=== PATIENT | male | born 1980 | race Caucasian/White ===

== ENCOUNTER 2022-12-23 09:44 | Outpatient (CLI) | payer MEDICARE, SELFPAY ==
[2022-12-23 15:51] LABS: Basophils Percent Auto 0.4 % (0.0-3.0); Eosinophils Percent Auto 1.4 % (0.0-7.0); Hemoglobin* 15.2 gm/dL (13.5-17.5); Immature Granulocytes Pct Auto 0.2 %; Lymphocytes Percent Auto 23.7 % (20-44); Mean Corpuscular HGB Conc 33 gm/dL (32-36); Mean Corpuscular Hemoglobin 31 pg (26-34); Mean Corpuscular Volume 95 fL (80-100); Monocytes Percent Auto 5.2 % (0.0-11.0); Neutrophils Percent Auto 69.1 % (42.0-72.0); Platelet Count* 362 K/uL (140-440); RDW Coefficient of Variation % 14.1 % (11.5-15.5); Red Blood Count 4.86 m/uL (4.30-5.90); White Blood Count* 13.98 K/uL (4.50-11.00)
[2022-12-23 15:59] LABS: Slide Review Reflex No
[2022-12-23 17:25] LABS: Strep A DNA Probe* NOT DETECTED (Not Detectd)
[2022-12-23 17:26] LABS: SARS PCR* Negative SARS-CoV-2 (Negative)
== END 2022-12-23 09:45 | disposition home or self-care (01) ==
PROVIDERS: Visit Provider Nurse Practitioner Family
DX: J11.1 Influenza due to unidentified influenza virus with other respiratory manifestations (principal)
CPT/HCPCS: 85025; 87635; 87651

== ENCOUNTER 2024-08-12 08:25 | Outpatient (CLI) | payer MEDICARE, SELFPAY | END 2024-08-12 08:26 | disposition home or self-care (01) | PROVIDERS: PCP Nurse Practitioner Family; Visit Provider Nurse Practitioner Family | DX: Z13.228 Encounter for screening for other metabolic disorders (principal); Z13.0 Encounter for screening for diseases of the blood and blood-forming organs and certain disorders involving the immune mechanism | CPT/HCPCS: 80053; 85025 ==

== ENCOUNTER 2024-10-09 07:27 | Emergency (ER) | payer MEDICARE, SELFPAY ==
[2024-10-09 07:37] VITALS: BP 119/82; PULSE 105; RESP 18; TEMP 36.7; O2SAT 97; BMI 29.6
--- NOTE | 2024-10-09 08:08 | ED.GENADULT ---
HPI - General Adult General Date Seen: 10/09/24 Chief complaint: Back Injury/Pain Stated complaint: Back Pain Time Seen by Provider: 10/09/24 08:01 History of Present Illness HPI narrative: 44 yo M brought to ER this morning by EMS for back pain. Per report he has a history of chronic back pain and many surgeries 3 [facility]. He has been for having flaring back pain for the past 3 days. He was brought in by EMS this morning. He received fentanyl 100 mcg per EMS. He does not have many past medical records here in [facility] but does have records through [facility]. Past medical history noted through [facility] care link includes chronic back pain, L1 vertebral fracture, cervical stenosis, cervical spondylosis with radiculopathy, lumbar back pain, lumbar fusion,. Also history of anxiety/depression, controlled substance agreement broken (records indicate that he had a drug test positive for amphetamine and THC in 2016). Records indicate that he was on chronic opiates. He received a prescription for Dilaudid 4 mg tablets through his PCP in July 2024. He was hospitalized in August 2024 and 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 It looks a who is admitted 09/02/2024 at [facility]. According to those records he had altered mental status. He had had a recent lumbar fusion and had been off his amitriptyline for a few weeks and then restarted it 2 days prior to presentation. Patient confirms that he does have chronic neck and back pain. He has had multiple previous surgeries. On August 15 he had a cervical fusion and on August 16, the following day he had a lumbar thoracic fusion. He says he is fused from S1-T4 now. He says for about a month or so after his surgery his surgeons had increased his chronic opiate. He had been on Dilaudid 4-6 mg q.6 hours. As is their practice, it after about a month, the spine surgeons would no longer manage his pain in referred him back to the Pain Clinic. His pain clinic decreased him down to oxycodone 10 mg every few hours. He says he is allowed to take up to 8 oxycodone tablets per day. He is also on tizanidine for muscle relaxer, gabapentin 900 mg t.i.d. for pain. He had been having some trouble getting his skin incisions from his recent surgeries to heal but they now are all have been closed for the past couple of weeks. No recent bleeding or drainage from the incisions. He does have some chronic back pain and also some chronic pain radiated down his left leg. He notes that Monday night he had a significant flare in his low back pain. No clear trigger. No new injury. No unusual activity. The pain has been severe and continuous since then and not responding to his oxycodone. In addition to that he has worse numbness down his left leg with pain and numbness radiating all way down to his foot and new numbness radiating down his right leg. He thinks his bladder and bowel function has been normal. No fevers. He had a follow-up appointment scheduled with his surgeon through [facility], Dr. Crespo. The appointment was supposed to be yesterday. He could not go to the appointment because he was having too much pain. He called the ambulance this morning because he said, ?I just can not do it anymore!. He asked to be brought here to [place] thinking that there were spine surgeons here. Related Data Home Medications ?Medication ?Instructions ?Recorded ?Confirmed gabapentin 300 mg capsule 300 mg PO TID 12/23/22 10/09/24 tizanidine 4 mg tablet 4 mg PO Q8H PRN 12/23/22 08/12/24 amitriptyline 50 mg tablet 50 mg PO QPM 08/12/24 10/09/24 ondansetron 4 mg disintegrating 4 mg PO Q8H PRN 08/12/24 10/09/24 tablet oxycodone 20 mg tablet 10 mg PO Q8H PRN 08/12/24 08/12/24 oxycodone 5 mg tablet 5 mg PO PRN 08/12/24 08/12/24 hydroxyzine pamoate 25 mg capsule 25 mg PO Q6H PRN itch 10/09/24 10/09/24 oxycodone 10 mg tablet 10 mg PO 10/09/24 Previous Rx's ?Medication ?Instructions ?Recorded hydromorphone 4 mg tablet 4 mg PO Q6H PRN pain #10 tabs 10/09/24 (Dilaudid) Allergies Allergy/AdvReac Type Severity Reaction Status Date / Time morphine Allergy Vomiting Verified 08/12/24 08:06 [facility] Surgical History (Updated 08/12/24 @ 08:18 by Sherri Paul APRN, ENGINE HEAD REPAIRER) History of hand surgery ?Z98.890 - Other specified postprocedural states (ICD-10) History of spinal surgery ?Z98.890 - Other specified postprocedural states (ICD-10) Family History (Updated 08/12/24 @ 08:18 by Sherri Paul APRN, ENGINE HEAD REPAIRER) Mother ALS (amyotrophic lateral sclerosis) Social History (Updated 08/12/24 @ 08:20 by Sherri Paul APRN, ENGINE HEAD REPAIRER) Narrative: Single, fianc?e, 2 step daughters. Disabled. Former smoker, quit 2018. Alcohol, none. No illicit drug use. Walks daily. Smoking Status: Former smoker How often do you have a drink containing alcohol: never AUDIT-C Alcohol total score: 0 Non-prescribed substance use: marijuana (any form) Exam Narrative: Exam Narrative: Constitutional: Appears well-developed and well-nourished. Alert. Moaning due to pain. At times is somewhat disjointed and almost hysterical in providing his history. At other times he is fairly calm and I am able to get a reasonably cogent history. HENT: Head: Atraumatic. Nose: Nose normal. Mouth/Throat: Oral mucosa is clear and moist. no trismus. Eyes: Conjunctivae normal. EOM normal. Pupils equal, round, and reactive to light. No scleral icterus. Neck: Normal range of motion. Neck supple. No tracheal deviation present. Cardiovascular: Normal rate, regular rhythm. No gallop. No friction rub. No murmur heard. Symmetric radial artery pulses Pulmonary/Chest: Effort normal. No stridor. No respiratory distress. No wheezes. No rales. No rhonchi . No tenderness. Abdominal: Soft. Bowel sounds normal. No distension. No mass. No tenderness. No rebound. No guarding. Musculoskeletal: He is able to roll onto his left hip so I can examine his back. He has healing incisions on the spine including a right lumbar para midline incision that looks good. He also has a long midline incision that looks good. There is a little bit of scabbing on his long midline incision but there is no signs of any active drainage, purulent drainage, bleeding. No surrounding erythema. No palpable fluctuance. He is diffusely tender on his entire thoracic and lumbar spine without any point tenderness or step-off. RUE: Normal range of motion. No tenderness. No deformity LUE: Normal range of motion. No tenderness. No deformity RLE: Normal range of motion. No edema. No tenderness. No deformity LLE: Normal range of motion. No edema. No tenderness. No deformity Neurological: Alert and oriented to person, place, and time. Normal strength. CN II-VII intact. No sensory deficit. GCS eye subscore is 4. GCS verbal subscore is 5. GCS motor subscore is 6. Normal coordination Neuro exam is difficult because the patient has superimposed pain. Sensory: Normal light touch sensation bilaterally on the anteromedial thigh (L3), medial malleolus (L4), dorsal first web space (L5), lateral malleolus (S1). Strength: Strength hip flexors (L3) is limited by pain bilaterally but seems to be 5/5 on the right and left 5/5 strength in the quadriceps (L4) on the right and left 5/5 strength in the tibialis anterior 5/5 strength in the EHL (L5) on the right and left 5/5 strength in the gastrocnemius (S1) on the right and left Strength is limited by pain in the hamstring on the right and left but seems to be 5/5 DTRs: Not able to get good DTRs. Positive straight leg raise bilaterally. Skin: Skin is warm and dry. No rash noted. No pallor. Normal capillary refill. Psychiatric: Normal mood. Normal affect. Const: Vital Signs, click to edit/add: Vital Signs - 24 hr 10/09/24 07:37 10/09/24 09:37 10/09/24 09:38 Temperature 98.1 F Pulse Rate 95 86 Pulse Rate [Pulse Oximeter] 105 H Respiratory Rate 18 Blood Pressure 115/77 Blood Pressure [Ri ght Upper Arm] 119/82 Pulse Oximetry 97 99 97 Oxygen Delivery Me thod Room Air 10/09/24 10:21 10/09/24 11:26 Temperature Pulse Rate 81 Pulse Rate [Pulse Oximeter] Respiratory Rate Blood Pressure 103/74 Blood Pressure [Ri ght Upper Arm] Pulse Oximetry 96 Oxygen Delivery Me thod Course Course ED Course: Recheck-still having some pain. Also very anxious. Ativan and additional oral Dilaudid order to facilitate MRI. Reevaluation(s) Reevaluation #1: Recheck-after MRI patient looks more comfortable but still endorsing a lot of pain. He is requesting some IV pain medications in hopes that the work better than pills. I discussed that it is best to avoid IVs due to potential worsening in his overall pain long-term. He verbalizes understanding. We talked about potentially discharging with a short prescription for Dilaudid tablets that he can use instead of oxycodone. He voluntarily informs me that he has a pain contract with [facility] and that I should call them 1st before giving new prescriptions. His provider's name is Kanwal. Phone call placed to [facility] Vital Signs Vital signs: Initial Vital Signs Temperature 98.1 F 10/09/24 07:37 Temperature Source Temporal Artery Scan 10/09/24 07:37 Pulse Rate 105 H 10/09/24 07:37 Respiratory Rate 18 10/09/24 07:37 Blood Pressure 119/82 10/09/24 07:37 Blood Pressure Mean 94 10/09/24 07:37 Pulse Oximetry 97 10/09/24 07:37 Oxygen Delivery Method Room Air 10/09/24 07:37 Vital Signs Temperature 98.1 F 10/09/24 07:37 Pulse Rate 105 H 10/09/24 07:37 Respiratory Rate 18 10/09/24 07:37 Blood Pressure 119/82 10/09/24 07:37 Pulse Oximetry 97 10/09/24 07:37 Oxygen Delivery Method Room Air 10/09/24 07:37 Temperature 98.1 F 10/09/24 07:37 Pulse Rate 81 10/09/24 10:21 Respiratory Rate 18 10/09/24 07:37 Blood Pressure 103/74 10/09/24 11:26 Pulse Oximetry 96 10/09/24 10:21 Oxygen Delivery Method Room Air 10/09/24 07:37 Medications Administered Medications: Discontinued Medications Generic Name Dose Route Start Last Admin Trade Name Lorrie PRN Reason Stop Dose Admin Hydromorphone HCl 4 mg 10/09/24 08:43 10/09/24 08:58 Hydromorphone 2 Mg Tablet PO 10/09/24 08:44 4 mg ONCE ONE Administration Hydromorphone HCl 2 mg 10/09/24 10:15 10/09/24 10:19 Hydromorphone 2 Mg Tablet PO 10/09/24 10:16 2 mg ONCE ONE Administration Lorazepam 1 mg 10/09/24 08:43 10/09/24 09:49 Lorazepam 1 Mg Tablet PO 10/09/24 08:44 1 mg ONCE ONE Administration Medical Decision Making MDM Narrative Medical decision making narrative: 44-year-old gentleman with a history of multiple previous spine and neck surgeries and chronic low back pain on opiates presenting to the ER today this morning from his home by EMS with an exacerbation of his low back pain and new symptoms of pain and numbness radiating down both of his legs. He had had surgery on his C-spine as well as his teen L-spine in July by Dr. Crespo ([facility]) at [facility]. He has no recent fall or injury or no clear reason why his pain would flare up for the past few days. He has not had any fever. However with new worsening pain and bilateral leg symptoms we I did feel that [facility] imaging was indicated. Fortunately, we were able to get MRI of his lumbar spine with and without contrast. I do not think he needs MRI of the T or C-spine because the pain is isolated to his low back and both legs. Of the MRI of the L-spine does not show any catastrophic findings such as epidural hematoma, abscess, new fracture. It does show postsurgical changes as well as a synovial cyst with some impingement into the right L5-S1 canal and nerve root. It is possible that this synovial cyst could be causing some of his exacerbation of pain. Does not represent an immediate neurosurgical emergency. The patient actually had a previously scheduled postop appointment with his spine surgeon yesterday but missed it. Will provide him with digital copies of his MRI today and recommend close outpatient follow-up with his surgeon to re-evaluate his pain and this synovial cyst. D[facility] She knows this case well. She is okay with us giving him a short prescription for Dilaudid to manage his pain for the next couple of days. She asks to have him call tomorrow to check in with her clinic. Also she recommends close outpatient follow-up with his surgeons discussed this plan of care with the patient. He is willing to try the Dilaudid at home. He is not sure if his insurance will cover it. If they do not he is willing to pay doll. He is also worried that the pharmacy may not fill his prescription since he just filled a prescription for oxycodone a few days ago. He is willing to try getting it filled through the [facility] pharmacy in [place]. Discussed the need to follow up by phone tomorrow with his pain clinic . He will call his surgeon's today to reschedule his postop appointment. He understands that he does have a synovial cyst and that needs to be evaluated by surgeon. We also discussed chronic pain. We are giving him a prescription for Dilaudid today. We cannot give further refill prescriptions for pain further struck the ER for this problem Opiate precautions reviewed. Potential for addiction reviewed. Imaging Data MRI L spine: Radiologist's impression: Impression: 1. Extensive postoperative changes of the lumbar spine with posterior instrumented fusion identified from the T11 through S1 levels as well as interbody fusion from the L1-L2 through L4-L5 levels. 2. Demonstration of likely prior hardware removal of left L5 pedicle screw with severe postoperative and degenerative facet arthrosis of the right L5-S1 facet with demonstration of a large medially directed synovial cyst measuring 6.2 millimeters with marked effacement of the right lateral recess and exiting nerve root. There is minimal circumferential epidural granulation tissue at this level and likely a small residual postoperative seroma adjacent to the posterior L4 and L5 posterior elements. Correlate for history of recent surgery weeks prior. Discharge Plan Discharge Clinical Impression: Acute exacerbation of chronic low back pain Patient Disposition: Home, Self-Care Condition: Stable Instructions: Acute Low Back Pain (ED) Additional Instructions: Please follow-up with your surgeon, Dr. Crespo, as soon as possible. Also follow-up with your pain clinic at [facility] within 1-2 days. If you have new symptoms (for instance new weakness in your leg, bowel or bladder disturbance, high fever) or other concerns, please return to the ER or see your doctors right away. Prescriptions: New hydromorphone [Dilaudid] 4 mg tablet 4 mg PO Q6H PRN (Reason: pain) Qty: 10 0RF No Action gabapentin 300 mg capsule 300 mg PO TID tizanidine 4 mg tablet 4 mg PO Q8H PRN oxycodone 20 mg tablet 10 mg PO Q8H PRN oxycodone 5 mg tablet 5 mg PO PRN amitriptyline 50 mg tablet 50 mg PO QPM ondansetron 4 mg tablet,disintegrating 4 mg PO Q8H PRN hydroxyzine pamoate 25 mg capsule 25 mg PO Q6H PRN (Reason: itch) oxycodone 10 mg tablet 10 mg PO Follow Up/Referrals: Sherri Paul APRN, ENGINE HEAD REPAIRER [Primary Care Provider] - Stand Alone Forms: [facility] Info Instructions
--- OUTSIDE RECORDS SUMMARY | 2024-10-09 08:57 | XMS_ITS | Clinical Summary ---
Author Organization [facility] Address [address] [place] [address]. [place] [address] Care Team Providers Care Supervisor Electrolytic Tinning Name Role Phone Levon, Callum GARCIA Primary Care Provider [phone] Allergies Active Allergy Reactions Criticality Noted Date Comments Morphine 10/14/2007 Medications TYLENOL 325 MG OR TABS Take 650 mg by mouth every 4 hours as needed Active cyclobenzaprine (FLEXERIL) 10 MG tablet 10 mg 3 times daily 0 6 Active gabapentin (NEURONTIN) 300 MG capsule 900 mg 4 times daily 0 7 Active oxyCODONE (ROXICODONE) 5 MG tablet Take 20 mg by mouth every 6 hours as needed for severe pain Active naloxone (NARCAN) 4 MG/0.1ML nasal spray [place] 1 spray (4 mg) into one nostril alternating nostrils as needed for opioid reversal every 2-3 minutes until assistance arrives 0.2 mL 0 Active Encounters Date Type Department Care Team Description 09/03/2024 Telephone [facility] [address] [place] [address] Mica Villela RN Pt. Information/instruction from Last 3 Months Immunizations Name Administration Dates Next Due TDAP Vaccine (Boostrix) 06/17/2015 Social History Tobacco Use Types Packs/Day Years Used Date Smoking Tobacco: Every Day Cigarettes Smokeless Tobacco: Never Tobacco Cessation:Ready to Q uit: No; Counseling Given: Yes Alcohol Use Standard Drinks/Week Comments Never 0 (1 standard drink = 0.6 oz pur e alcohol) AUDIT-C Answer Date Recorded Q1: How often do you have a drink containing alc ohol? 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 Gender Identity Not on file Sexual Orientation Not on file Last Filed Vital Signs Vital Sign Reading Time Taken Comments Blood Pressure 107/87 11/28/2019 8:00 PM CDT Pulse 108 11/28/2019 8:00 PM CDT Temperature 37.1 C (98.7 F) 11/28/2019 6:31 PM CDT Respiratory Rate 30 11/28/2019 8:00 PM CDT Oxygen Saturation 94% 11/28/2019 8:00 PM CDT Inhaled Oxygen Concentration - - Weight 80.3 kg (177 lb) 01/30/2017 2:46 PM CDT Height 172.7 cm (5' 8) 01/30/2017 2:46 PM CDT Body Mass Index 26.91 01/30/2017 2:46 PM CDT Plan of Treatment Not on file Care Teams Supervisor Electrolytic Tinning Relationship Specialty Start Date End Date Clinic, MD Callum [address] [place] [address] PCP - General 11/28/19
--- OUTSIDE RECORDS SUMMARY | 2024-10-09 08:57 | XMS_ITS | Encounter Summary ---
Author Organization [place] Address [facility] [place] [address] Care Team Providers Care Grain Grader Name Role Phone Levon, Callum GARCIA Primary Care Provider [phone] Reason for Visit * Reason Onset Date Comments Pt. Information/instruction 09/03/2024 Encounter Details Date Type Department Care Team (Late st Contact Info) Description 09/03/[address] [facility] Nurse [facility] [address] [place] [address] Mica Villela, RN Pt. 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 He had neck and back surgery about 2 weeks ago and he is back in the hospital. Advised pt to call tomorrow during business hours to cancel his appt. He verbalized understanding. Mica Villela RN, BSN Nurse Triage Advisor 09/03/2024 6:53 PM EN PRINTING LOADER UNLOADER documented in this encounter Plan of Treatment Not on file documented as of this encounter Visit Diagnoses Not on filedocumented in this encounter Care Teams Grain Grader Relationship Specialty Start Date End Date Clinic, MD Callum [facility] [address] [place], [place] [id number] PCP - General 11/28/19 documented as of this encounter
--- OUTSIDE RECORDS SUMMARY | 2024-10-09 08:57 | XMS_ITS | Clinical Summary ---
Author Organization [facility] Address [place], [place] [address] Care Team Providers Care Credit Control Manager Name Role Phone Clinic, No Pcp Or Primary Care Provider Unavaila ble Allergies Active Allergy Reactions Criticality Noted Date Comments Morphine Itching,Vomiting 06/27/2011 Vancomycin Itching 08/15/2019 Medications acetaminophen (TYLENOL EXTRA STRGTH) 500 mg tabletIndications: pain Take 1,000 mg by mouth every 6 hours if needed. Max acetaminophen dose: 4000mg in 24 hrs. Active ondansetron (ZOFRAN ODT) 4 mg disintegrating tabletIndications: Nausea and vomiting, unspecified vomiting type Place 1 Tablet (4 mg) on the tongue every 8 hours if needed for Nausea/Vomiting. 30 Tablet 01/04/20 Active WalkerIndications: Lumbar stenosis with neurogenic claudication Walker with front wheels for home use for 3 months. 1 Each 08/19/20 Active hydrOXYzine pamoate (VISTARIL) 25 mg capsuleIndications :Lumbar stenosis with neurogenic claudication,Acute postoperative pain Take 1-2 Capsules (25-50 mg) by mouth 3 times daily if needed for Anxiety (Pain adjunct). Short term use for acute postoperative pain. 20 Capsule 4 11:06 AM PATIENT COORDINATOR 08/20/20 Active HYDROmorphone 4 mg tabletIndications: Acute postoperative pain,Cervical spondylosis with radiculopathy Take 1-1.5 Tablets (4-6 mg) by mouth every 4 hours if needed for Pain. As pain improves take less medication and go longer between doses. Short term use for acute postoperative pain. Do not take more than prescribed. 45 Tablet 4 1:35 PM PATIENT COORDINATOR 08/20/20 Active tiZANidine (ZANAFLEX) 4 mg tabletIndications: Acute postoperative pain,Cervical spondylosis with radiculopathy Take 1 Tablet (4 mg) by mouth every 8 hours if needed for Muscle Spasm. For short term use for acute postoperative pain. As spasms improves take less medication and go longer between doses. 30 Tablet 4 1:35 PM PATIENT COORDINATOR 08/20/20 Active polyethylene glycoL (MIRALAX) 17 gram/scoop powderIndications: Opioid-induced constipation Mix 1 scoop (17 g) in liquid then take by mouth once daily. And up to twice daily if needed to prevent opioid-induced constipation. Hold if having diarrhea. 1020 g 08/21/20 Active sennosides-docusat e (SENOKOT S) (8.6-50 mg) tabletIndications: Opioid-induced constipation Take 2 Tablets by mouth two times daily. To prevent constipation while on opioid. Hold if having diarrhea or loose stools. 120 Tablet 08/21/20 Active gabapentin (NEURONTIN) 300 mg capsuleIndications :Lumbar disc disease,Cervical spinal stenosis Take 1 Capsule (300 mg) by mouth three times daily. 09/04/19 25 Active sennosides (SENNA) 8.6 mg tabletIndications: Constipation, unspecified constipation type Take 1-2 Tablets (8.6-17.2 mg) by mouth 2 times daily if needed for Constipation. 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 Certified letter sent to patient. Vomiting 02/21/2017 AC joint arthropathy 06/12/2014 Chronic back pain 03/29/2013 S/P lumbar fusion 03/29/2013 Overview (03/29/2013): 1998 Encounters Date Type Department Care Team Description 09/02/2024 6:31 PM PATIENT COORDINATOR - 09/04/2024 1:09 PM PATIENT COORDINATOR Hospital Encounter [address] [address] Rosemarie Sharpe PA Ran, Renzhong, MD Ellingson, MD Estrella Paerkh Clive Peter Omwanza, MD Cudak, Austin Christopher, DO Kim, Jae-Woo, MD Altered mental status, unspecified altered mental status type (Primary Dx); Poisoning by parasympatholytic drug, accidental or unintentional, initial encounter; Other problems related to housing and economic circumstances; Transportation insecurity; Low income; Lumbar disc disease; Cervical spinal stenosis; Constipation, unspecified constipation type Discharge Disposition: Home Self Care 09/02/2024 Travel 08/16/2024 7:55 AM PATIENT COORDINATOR Anesthesia Event [facility] [address] [place] [id number] Janusz Brown CRNA 08/16/2024 7:00 AM PATIENT COORDINATOR - 08/16/2024 2:26 PM PATIENT COORDINATOR Surgery [facility] [address] [place] [address] Jorge Crespo MD Anterior Spine interbody Fusion T9 to: T11, Posterior Spine Fusion T4-T11, Bone marrow aspiration Right ILEUM, REMOVAL RIGHT S1 SCREW 08/15/2024 7:49 AM PATIENT COORDINATOR Anesthesia Event [facility] [address] [place] [address] Oziel Morales MD 08/15/2024 7:30 AM PATIENT COORDINATOR - 08/15/2024 12:39 PM PATIENT COORDINATOR Surgery [facility] [address] [place] [address], [place] [address] Milton Helm MD Anterior Cervical Decompression Fusion C3 to: C6 08/15/2024 5:51 AM PATIENT COORDINATOR - 08/21/2024 11:05 AM PATIENT COORDINATOR Hospital Encounter [facility] [address] [place] [address] Milton Helm MD Chronic, continuous use of opioids (Primary Dx); Lumbar stenosis with neurogenic claudication; Acute postoperative pain; Cervical spondylosis with radiculopathy; Opioid-induced constipation Discharge Disposition: Home Self Care 08/14/2024 Travel from Last 3 Months Immunizations Name Administration Dates Next Due Hepatitis B, Unspecified 10/21/1996,03/05/1996,0 01/30/1996 Tdap 06/17/2015 Family History Relation Name Status Comments Daughter Alive Father Alive Mother Social History Tobacco Use Types Packs/Day Years Used Date Smoking Tobacco: Former Cigarettes 1.5 22 0 01/27/1996 - 01/2018 Smokeless Tobacco: Never Comments:around 5 cigerettes per day Alcohol Use Standard Drinks/Week Comments No 0 (1 standard drink = 0.6 oz pur e alcohol) PHQ-2 Answer Date Recorded PHQ-2 Score 4 10/29/2018 Social Connections Answer Date Recorded Do you often feel lonely or isolated from those around you? 0 09/03/2024 Financial Resource Strain Answer Date R ecorded Difficulty of Paying Living Expenses 1 09/03/2024 Difficulty of Paying Living Expenses 2 09/03/2024 Food Insecurity Answer Date Recorded Do you worry your food will run out before you are able to buy more? 1 09/03/2024 Transportation Needs Answer Date Record ed Does lack of transportation keep you from medica l appointments? 1 09/03/2024 Does lack of transportation keep you from work, meetings or getting things that you need? 2 09/03/2024 Housing Stability Answer Date Recorded What is your housing situation today? 1 09/03/2024 Interpersonal Safety Answer Date Record ed Are you being hit, kicked, p ushed or yelled at (see row info)? No 09/02/2024 Interpersonal Safety Abuse 12 - 18 Not on file 09/02/2024 Interpersonal Safety Ambulatory Vulnerability No t on file 09/02/2024 Utilities Answer Date Recorded Do you have trouble paying f or utilities (for example, heat, electricity, water, phone)? 2 09/03/2024 Sex and Gender Information Value Date Recorded Sex Assigned at Not on file Legal Sex Male 6:07 AM PATIENT COORDINATOR Gender Identity Not on file Sexual Orientation Not on file Obstetrics History Last Filed Vital Signs Vital Sign Reading Time Taken Comments Blood Pressure 109/64 09/04/2024 8:06 AM PATIENT COORDINATOR Pulse 92 09/04/2024 8:06 AM PATIENT COORDINATOR Temperature 36.2 C (97.1 F) 09/04/2024 8:06 AM PATIENT COORDINATOR Respiratory Rate 18 09/04/2024 8:06 AM PATIENT COORDINATOR Oxygen Saturation 96% 09/04/2024 8:06 AM PATIENT COORDINATOR Inhaled Oxygen Concentration - - Weight 90.6 kg (199 lb 12.8 oz) 09/02/2024 6:47 PM PATIENT COORDINATOR Height 172.7 cm (5' 8) 09/02/2024 6:47 PM PATIENT COORDINATOR Body Mass Index 30.38 09/02/2024 6:47 PM PATIENT COORDINATOR Plan of Treatment Health Maintenance Due Date Last Done Comments HIV for age 15-65 1994 Hepatitis C screening for age 18-79 1997 BMI (ht and wt on same day) for age 18+ 07/03/2018 07/03/2017, 02/21/2017, 02/20/2017, Additional history exists Depression screening for age 12+ 07/09/2019 07/09/2018, 10/17/2016, 10/05/2015 COVID-19 vaccine series ( season) 2024 Influenza for age 9-49 04/28/2024 Colonoscopy through age 75 2024 Lipids for age 45-75 2024 Tetanus booster 06/17/2025 06/17/2015 Tdap Completed 06/17/2015 Pneumococcal series for age 6-49 Aged Out No longer eligible based on patient's age to complete this topic Medical Devices Implanted Type Area Shovel Log Loader Operator Device Identifier Shelf Expiration Date Model / Serial / Lot K-Wire Dbl End [id number] - [id number] Implanted:Qty: 2 on 06/19/2015 by Deniz Melgar MD at [facility] Left: Hand [employer] [id number]# / / Bone Matrix 2.5x10cm Stephan Plf m - [id number] Implanted:Qty: 1 on 01/31/2018 by Jorge Crespo MD at [facility] N/A: Spine Medtronic Spine/Ortho 03/29/2020 [id number]# / [id number] / [id number] Bone 1-4mm 90cc Medtronic Chips Canclls Freeze Dried - [id number] Implanted:Qty: 1 on 01/31/2018 by Jorge Crespo MD at [facility] N/A: Spine Medtronic Spine/Ortho 08/27/2022 [id number]# / [id number] / [id number] Spacer Lmbr [id number] 10deg Transcontinental - [id number] Implanted:Qty: 1 on 01/31/2018 by Jorge Crespo MD at [facility] N/A: Spine Globus [employer] Inc 375.273# / / Spacer Lmbr [id number] 10deg Transcontinental - [id number] Implanted:Qty: 1 on 01/31/2018 by Jorge Crespo MD at [facility] N/A: Spine [employer] 375.271# / / Spacer Lmbr [id number] 10degtranscontinen kanwal - [id number] Implanted:Qty: 1 on 01/31/2018 by Jorge Crespo MD at [facility] N/A: Spine [employer] 375.073# / / Bone 1-4mm 90cc Medtronic Chips Canclls Freeze Dried - [id number] Implanted:Qty: 1 on 01/31/2018 by Jorge Crespo MD at [facility] Bilateral: Lumbar Vertebrae Medtronic Spine/Ortho 08/27/2022 [id number]# / / [id number] Bone 1-4mm 90cc Medtronic Chips Canclls Freeze Dried - [id number] Implanted:Qty: 1 on 01/31/2018 by Jorge Crespo MD at [facility] Bilateral: Lumbar Vertebrae Medtronic Spine/Ortho [id number]# / / [id number] Screw Lmbr Post 8.5x35mm Solera 5.5/6 Va Cocr - [id number] Implanted:Qty: 2 on 01/31/2018 by Jorge Crespo MD at [facility] Explanted:Qty: 1 on 09/12/2018 by Jorge Crespo MD at [facility] Lumbar Vertebrae Medtronic Spine/Ortho [id number]# / / Screw Lmbr Post 7.5x45mm Solera 5.5/6 Va Cocr - [id number] Implanted:Qty: 8 on 01/31/2018 by Jorge Crespo MD at [facility] Explanted:Qty: 3 on 09/12/2018 at [facility] Lumbar Vertebrae Medtronic Spine/Ortho [id number]# / / Bone Matrix 2.5x5cm Karnes Plf Dbm - [id number] Implanted:Qty: 1 on 09/12/2018 by Jorge Crespo MD at [facility] Bilateral: Lumbar Vertebrae Medtronic Spine/Ortho 01/09/2021 [id number]# / / [id number] Bone Matrix Sm Infuse Bmp - [id number] Implanted:Qty: 1 on 09/12/2018 by Jorge Crespo MD at [facility] Bilateral: Lumbar Vertebrae Medtronic Spine/Ortho 11/25/2020 [id number]# / / [id number] Bone 1-4mm 90cc Medtronic Chips Canclls Freeze Dried - [id number] Implanted:Qty: 1 on 09/12/2018 by Jorge Crespo MD at [facility] Bilateral: Lumbar Vertebrae Medtronic Spine/Ortho 02/15/2023 [id number]# / / [id number] Screw Lmbr Post 6.5x50mm Solera 5.5/6 Va Cocr - [id number] Implanted:Qty: 3 on 09/12/2018 by Jorge Crespo MD at [facility] Bilateral: Lumbar Vertebrae Medtronic Spine/Ortho [id number]# / / Screw Lmbr Post 6.5x45mm Solera 5.5/6 Va Cocr - [id number] Implanted:Qty: 1 on 09/12/2018 by Jorge Crespo MD at [facility] Bilateral: Lumbar Vertebrae Medtronic Spine/Ortho [id number]# / / Screw Lmbr Post 8.5x45mm Solera 5.5/6 Va Cocr - [id number] Implanted:Qty: 1 on 09/12/2018 by Jorge Crespo MD at [facility] Bilateral: Lumbar Vertebrae Medtronic Spine/Ortho [id number]# / / Bone 1-4mm 90cc Medtronic Chips Canclls Freeze Dried - [id number] Implanted:Qty: 1 on 09/12/2018 by Jorge Crespo MD at [facility] Bilateral: Lumbar Vertebrae Medtronic Spine/Ortho 02/15/2023 [id number]# / / [id number] Sebastián Lmbr 500x5.5mm Solera 5.5/6 Stra Titnm Alloy - [id number] Implanted:Qty: 1 on 09/12/2018 by Jorge Crespo MD at [facility] Bilateral: Lumbar Vertebrae Medtronic Spine/Ortho [id number]# / / Set Screw Lmbr Ant 5.5mm Solera Break Off - [id number] Implanted:Qty: 12 on 09/12/2018 by Jorge Crespo MD at [facility] Bilateral: Lumbar Vertebrae Medtronic Spine/Ortho [id number]# / / Screw Lmbr Post 9.5x35mm Solera 5.5/6 Va Cocr - [id number] Implanted:Qty: 1 on 09/12/2018 by Jorge Crespo MD at [facility] Lumbar Vertebrae Medtronic Spine/Ortho [id number]# / / Bone Matrix 3cc Karnes Dbf Putty Dbm - [id number] Implanted:Qty: 1 on 08/15/2024 by Milton Helm MD at [facility] N/A: Cervical Vertebrae Medtronic Spine/Ortho [id number] 06/04/2026 [id number] / [id number] / Spacer Lordotic Sm 7mm 6 Deg Nanolock Tc - [id number] Implanted:Qty: 1 on 08/15/2024 by Milton Helm MD at [facility] N/A: Cervical Vertebrae Medtronic Spine/Ortho 04/25/2029 [id number]-[id number] / / [id number] Spacer Lordotic Sm 7mm 6 Deg Nanolock Tc - [id number] Implanted:Qty: 1 on 08/15/2024 by Milton Helm MD at [facility] N/A: Cervical Vertebrae Medtronic Spine/Ortho 03/23/2028 [id number] / / [id number] Spacer Lordotic Sm [id number] 6 Deg Nanolock Tc - [id number] Implanted:Qty: 1 on 08/15/2024 by Milton Helm MD at [facility] N/A: Cervical Vertebrae Medtronic Spine/Ortho 05/05/2029 [id number]-[id number] / / [id number] Plate Cerv 3 Lvl 53mm Zevo Ant - [id number] Implanted:Qty: 1 on 08/15/2024 by Milton Helm MD at [facility] N/A: Cervical Vertebrae Medtronic Spine/Ortho [id number] / / Screw Cerv Ant 3.5x13mm Zevo Slf Tppng - [id number] Implanted:Qty: 8 on 08/15/2024 by Milton Helm MD at [facility] N/A: Cervical Vertebrae Medtronic Spine/Ortho [id number] / / Graft Bone Substitute 10cc Allosync - [id number] Implanted:Qty: 1 on 08/16/2024 by Jorge Crespo MD at [facility] N/A: Spine Arthrex Inc 02/22/2026 ABS-2016-10 / [id number] / [id number] Bone 1-4mm 90cc Medtronic Chips Canclls Freeze Dried - [id number] Implanted:Qty: 1 on 08/16/2024 by Jorge Crespo MD at [facility] N/A: Spine Medtronic Spine/Ortho [id number] 04/05/2028 [id number] / [id number] / Bone 1-4mm 30cc Medtronic Chips Canclls Freeze Dried - [id number] Implanted:Qty: 1 on 08/16/2024 by Jorge Crespo MD at [facility] N/A: Spine Medtronic Spine/Ortho [id number] 05/21/2028 [id number] / [id number] / Bone 1-4mm 60cc Medtronic Fine Canclls Freeze Dried - [id number] Implanted:Qty: 1 on 08/16/2024 by Jorge Crespo MD at [facility] N/A: Spine Medtronic Spine/Ortho [id number] 06/13/2028 [id number] / [id number] / Set Screw Lmbr Ant 5.5mm Solera Break Off - [id number] Implanted:Qty: 15 on 08/16/2024 by Jorge Crespo MD at [facility] N/A: Spine Medtronic Spine/Ortho [id number] / / Screw Lmbr Post 5.5x35mm Solera 5.5/6 Va Cocr - [id number] Implanted:Qty: 2 on 08/16/2024 by Jorge Crespo MD at [facility] N/A: Spine Medtronic Spine/Ortho [id number] / / Screw Lmbr Post 5.5x40mm Solera 5.5/6 Va Cocr - [id number] Implanted:Qty: 5 on 08/16/2024 by Jorge Crespo MD at [facility] N/A: Spine Medtronic Spine/Ortho [id number] / / Screw Lmbr Post 5.5x45mm Solera 5.5/6 Va Cocr - [id number] Implanted:Qty: 1 on 08/16/2024 by Jorge Crespo MD at [facility] N/A: Spine Medtronic Spine/Ortho [id number] / / Sebastián Lmbr 500x5.5mm Solera 5.5/6 Stra Titnm Alloy - [id number] Implanted:Qty: 1 on 08/16/2024 by Jorge Crespo MD at [facility] N/A: Spine Medtronic Spine/Ortho [id number] / / Screw Lmbr Post 6.5x45mm Solera 5.5/6 Va Cocr - [id number] Implanted:Qty: 4 on 08/16/2024 by Jorge Crespo MD at [facility] N/A: Spine Medtronic Spine/Ortho [id number] / / Ayden Side/Top 5/6-5/6 Ti Implanted:Qty: 1 on 08/16/2024 by Jorge Crespo MD at [facility] N/A: Spine [id number] / / Description:AYDEN SIDE/TOP 5/6-5/6 TI [place] Top/Top 5/6-5/6 Ti Implanted:Qty: 1 on 08/16/2024 by Jorge Crespo MD at [facility] N/A: Spine [id number] / / Description:AYDEN TOP/TOP 5 /6-5/6 TI Rise-L Spacer 18 X 40mm, 7mm, 3-15 Implanted:Qty: 2 on 08/16/2024 by Jorge Crespo MD at [facility] N/A: Spine 193.502 / / Description:RISE-L Spacer 18 x 40mm, 7mm, 3-15 Bone Matrix Lg Infuse Bmp - [id number] Implanted:Qty: 1 on 08/16/2024 by Jorge Crespo MD at [facility] N/A: Spine Medtronic Spine/Ortho 10/26/2025 [id number] / / [id number] Explanted Type Area Shovel Log Loader Operator Device Identifier Shelf Expiration Date Model / Serial / Lot Screw Lmbr Post 7.5x45mm Solera 5.5/6 Va Cocr - [id number] Explanted:Qty: 1 on 01/31/2018 by Jorge Crespo MD at [facility] Lumbar Vertebrae Medtronic Spine/Ortho [id number] 545# / / K-Wire 2pk - [id number] Explanted:Qty: 1 on 01/31/2018 at [facility] N/A: Spine Globus Medical Inc 675.399S # / / Set Screw Lmbr Ant 5.5mm Solera Break Off - [id number] Implanted:Qty: 11 on 01/31/2018 by Jorge Crespo MD at [facility] Explanted:Qty: 11 on 09/12/2018 by Jorge Crespo MD at [facility] Lumbar Vertebrae Medtronic Spine/Ortho [id number]# / / Screw Lmbr Post 6.5x45mm Solera 5.5/6 Va Cocr - [id number] Implanted:Qty: 1 on 01/31/2018 by Jorge Crespo MD at [facility] Explanted:Qty: 1 on 09/12/2018 by Jorge Crespo MD at [facility] Lumbar Vertebrae Medtronic Spine/Ortho [id number] 545# / / Sebastián Lmbr 500x5.5mm Solera 5.5/6 Stra Titnm Alloy - [id number] Implanted:Qty: 1 on 01/31/2018 by Jorge Crespo MD at [facility] Explanted:Qty: 1 on 09/12/2018 by Jorge Cresop MD at [facility] Bilateral: Lumbar Vertebrae Medtronic Spine/Ortho [id number] 00# / / K-Wire 2pk - [id number] Explanted:Qty: 1 on 08/16/2024 at [facility] N/A: Spine [employer] Inc 675.399S / / Cartrg 5cc Dbm Instafill - [id number] Explanted:Qty: 1 on 08/16/2024 at [facility] N/A: Spine [employer] Inc [id number] 07/04/2029 8155.300 5S / [id number] / [id number] Procedures Procedure Name Priority Date/Time Associated Diagnosis Comments SEDIMENTATION RATE Early AM 09/04/2024 6: 09 AM PATIENT COORDINATOR VITAMIN B12 Early AM 09/04/2024 6:09 AM PATIENT COORDINATOR AMMONIA Early AM 09/04/2024 6:09 AM PATIENT COORDINATOR BLOOD GAS,VENOUS Early AM 09/04/2024 6:09 AM PATIENT COORDINATOR HEMOGLOBIN Early AM 09/04/2024 6:09 AM PATIENT COORDINATOR WHITE BLOOD COUNT Early AM 09/04/2024 6:0 9 AM PATIENT COORDINATOR CREATININE Early AM 09/04/2024 6:09 AM PATIENT COORDINATOR POTASSIUM Early AM 09/04/2024 6:09 AM PATIENT COORDINATOR SODIUM Early AM 09/04/2024 6:09 AM PATIENT COORDINATOR TSH DEANNE 09/03/2024 11:48 AM PATIENT COORDINATOR CREATININE Early AM 09/03/2024 11:48 AM PATIENT COORDINATOR DRUG SCREEN RAPID URINE INHOUSE STAT 09/02/2024 10:[address] HEAD BRAIN WO STAT 09/02/2024 8:34 PM PATIENT COORDINATOR XR SPINE 1 VIEW PORTABLE STAT 09/02/2024 8:29 PM PATIENT COORDINATOR XR SPINE 1 VIEW PORTABLE STAT 09/02/2024 8:29 PM PATIENT COORDINATOR XR SPINE 1 VIEW PORTABLE STAT 09/02/2024 8:29 PM PATIENT COORDINATOR EKG 12 LEAD STAT 09/02/2024 7:14 PM PATIENT COORDINATOR C-REACTIVE PROTEIN DEANNE 09/02/2024 7: 07 PM PATIENT COORDINATOR SEDIMENTATION RATE DEANNE 09/02/2024 7: 07 PM PATIENT COORDINATOR CBC WITH AUTO DIFFERENTIAL STAT 09/02/2024 7:07 PM PATIENT COORDINATOR ETHANOL SERUM OR PLASMA STAT 09/02/2024 7:07 PM PATIENT COORDINATOR LACTATE VENOUS Today 09/02/2024 7:07 PM PATIENT COORDINATOR BASIC METABOLIC PANEL STAT 09/02/2024 7:07 PM PATIENT COORDINATOR CBC WITH AUTO DIFFERENTIAL STAT 09/02/2024 7:07 PM PATIENT COORDINATOR AMITRIPTYLINE (ELAVIL) STAT 09/02/2024 7:07 PM PATIENT COORDINATOR XR SPINE CERVICAL 2 VIEWS Routine 08/19/2024 5:35 PM PATIENT COORDINATOR CREATININE Early AM 08/18/2024 6:41 AM PATIENT COORDINATOR POTASSIUM Early AM 08/18/2024 6:41 AM PATIENT COORDINATOR HEMOGLOBIN Early AM 08/18/2024 6:41 AM PATIENT COORDINATOR XR CHEST 1 VIEW PORTABLE Routine 08/17/2024 9:16 AM PATIENT COORDINATOR HEMOGLOBIN Early AM 08/17/2024 7:11 AM PATIENT COORDINATOR POTASSIUM Early AM 08/17/2024 7:11 AM PATIENT COORDINATOR CREATININE Early AM 08/17/2024 7:11 AM PATIENT COORDINATOR SODIUM Early AM 08/17/2024 7:11 AM PATIENT COORDINATOR XR CHEST 1 VIEW PORTABLE STAT 08/16/2024 5:06 PM PATIENT COORDINATOR XR C-ARM GREATER 1 HR Routine 08/16/2024 2:50 PM PATIENT COORDINATOR XR SPINE 1 VIEW PORTABLE Routine 08/16/2024 2:50 PM PATIENT COORDINATOR XR SPINE THORACIC 2 VIEWS PORTABLE Routine 08/16/2024 1:56 PM PATIENT COORDINATOR XR C-ARM EQUAL OR GREATER 4 HR Routine 08/16/2024 1:12 PM PATIENT COORDINATOR XR SPINE 1 VIEW PORTABLE Routine 08/16/2024 1:11 PM PATIENT COORDINATOR XR SPINE 1 VIEW PORTABLE Routine 08/16/2024 10:43 AM PATIENT COORDINATOR XR SPINE THORACIC 2 VIEWS PORTABLE Routine 08/16/2024 10:11 AM PATIENT COORDINATOR ENDOTRACHEAL TUBE Routine 08/16/2024 9:0 0 AM PATIENT COORDINATOR ENDOTRACHEAL TUBE Routine 08/16/2024 9:0 0 AM PATIENT COORDINATOR ENDOTRACHEAL TUBE Routine 08/16/2024 9:0 0 AM PATIENT COORDINATOR ARTERIAL LINE Routine 08/16/2024 8:40 AM PATIENT COORDINATOR ARTERIAL LINE Routine 08/16/2024 8:40 AM PATIENT COORDINATOR ARTERIAL LINE Routine 08/16/2024 8:40 AM PATIENT COORDINATOR ARTERIAL LINE Routine 08/16/2024 8:40 AM PATIENT COORDINATOR ARTERIAL LINE Routine 08/16/2024 8:40 AM PATIENT COORDINATOR ARTERIAL LINE Routine 08/16/2024 8:40 AM PATIENT COORDINATOR EXTRA TUBE LAVENDER Today 08/16/2024 7 :48 AM PATIENT COORDINATOR CBC W PLT NO DIFF STAT 08/16/2024 7:4 8 AM PATIENT COORDINATOR GLUCOSE METER Timed 08/16/2024 7:46 AM PATIENT COORDINATOR REMOVAL HARDWARE SPINAL IMPLANTS Elective 08/16/2024 7:09 AM PATIENT COORDINATOR KYPHOSIS, 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 Case Notes *ACDF 08/15*IOM, DAISY,CELL SAVER, A: 4085/LATERAL, A: GLOBUS HEDRON, P: PHILIPPE COMBO, P: SOLERA 5.5, WALLIS,as FUSION ANTERIOR POSTERIOR DIRECT LATERAL LEVEL 7 Elective 08/16/2024 7:09 AM PATIENT COORDINATOR KYPHOSIS, 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 Case Notes *ACDF 08/15*IOM, DAISY,CELL SAVER, A: 4085/LATERAL, A: GLOBUS HEDRON, P: PHILIPPE COMBO, P: SOLERA 5.5, WALLIS,as TYPE & SCREEN STAT 08/16/2024 6:50 AM PATIENT COORDINATOR SCAN-OPERATIVE/PROCE DURE REPORT 08/16/2024 12:00 AM PATIENT COORDINATOR XR C-ARM EQUAL OR GREATER 3 HR Routine 08/15/2024 12:25 PM PATIENT COORDINATOR XR SPINE 1 VIEW PORTABLE Routine 08/15/2024 12:23 PM PATIENT COORDINATOR [facility] KIT PR5 Routine 08/15/2024 8:29 AM PATIENT COORDINATOR [facility] STATLOCK PR1 Routine 08/15/2024 8:2 9 AM PATIENT COORDINATOR [facility] DRSG PR5 Routine 08/15/2024 8:29 AM PATIENT COORDINATOR [facility] DRSG PR1 Routine 08/15/2024 8:29 AM PATIENT COORDINATOR [facility] TUBING PR20 Routine 08/15/2024 8:29 AM PATIENT COORDINATOR [facility] TUBING PR1 Routine 08/15/2024 8:29 AM PATIENT COORDINATOR [facility] ANES ARTERIAL CATH FOR SAMPLE MONITOR TRANS Routine 08/15/2024 8:29 AM PATIENT COORDINATOR [facility] ANES US GUIDE FOR VASC ACCESS Routine 08/15/2024 8:29 AM PATIENT COORDINATOR [facility] CATH PR5 Routine 08/15/2024 8:29 AM PATIENT COORDINATOR ENDOTRACHEAL TUBE Routine 08/15/2024 8:2 8 AM PATIENT COORDINATOR ENDOTRACHEAL TUBE Routine 08/15/2024 8:2 8 AM PATIENT COORDINATOR ENDOTRACHEAL TUBE Routine 08/15/2024 8:2 8 AM PATIENT COORDINATOR GLUCOSE METER Timed 08/15/2024 7:33 AM PATIENT COORDINATOR FUSION DISCECTOMY ANTERIOR CERVICAL 03 Elective 08/15/2024 7:30 AM PATIENT COORDINATOR Stenosis, Cervical M48.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 SEDIMENTATION RATE 74(H) <15 mm/hr 2024 6:34 AM PATIENT COORDINATOR [facility] Blood BLOOD SPECIMEN / Unknown Butterfly / Unknown 09/04/2024 6:09 AM PATIENT COORDINATOR 09/04/2024 6:13 AM PATIENT COORDINATOR [facility] Simples[employer]kavitha [employer] DO HEMATOLOGY Aidee l Result Performing Organization Address City/[facility]/ZIP Co de Phone Number [facility] [address] [place] [address] * WHITE BLOOD COUNT (09/04/2024 6:09 AM PATIENT COORDINATOR) WHITE BLOOD COUNT 7.9 4.5 - 11.0 thou/cu mm 09/04/2024 6:28 AM PATIENT COORDINATOR [facility] Blood BLOOD SPECIMEN / Unknown Butterfly / Unknown 09/04/2024 6:09 AM PATIENT COORDINATOR 09/04/2024 6:13 AM PATIENT COORDINATOR [facility] Sofea [employer] DO HEMATOLOGY Aidee l Result [facility] [address] [place] [address] * (ABNORMAL) HEMOGLOBIN (09/04/2024 6:09 AM PATIENT COORDINATOR) Only the most recent of3 resultswithin the time period is included. HEMOGLOBIN 10.5(L) 13.5 - 17.5 g/dL 09/04/2024 6:28 AM [facility] MCV 99 80 - 100 fL 09/04/2024 6:28 AM [facility] Blood BLOOD SPECIMEN / Unknown Butterfly / Unknown 09/04/2024 6:09 AM PATIENT COORDINATOR 09/04/2024 6:13 AM PATIENT COORDINATOR Gurvinder Alfaro DO HEMATOLOGY Aidee l Result Performing Organization Address City/[facility]/ZIP Co de Phone Number [facility] [address] [place] [address] * SODIUM (09/04/2024 6:09 AM PATIENT COORDINATOR) Only the most recent of2 resultswithin the time period is included. SODIUM 137 136 - 145 mmol/L 09/04/2024 6:40 AM [facility] Blood BLOOD SPECIMEN / Unknown Butterfly / Unknown 09/04/2024 6:09 AM PATIENT COORDINATOR 09/04/2024 6:13 AM PATIENT COORDINATOR Gurvinder Alfaro DO CHEMISTRY Aidee l Result Performing Organization Address [facility]/RUST Co de Phone Number [facility] [address] [place] [address] * POTASSIUM (09/04/2024 6:09 AM PATIENT COORDINATOR) Only the most recent of3 resultswithin the time period is included. POTASSIUM 4.4 3.5 - 5.1 mmol/L 09/04/2024 6:40 AM [facility] Blood BLOOD SPECIMEN / Unknown Butterfly / Unknown 09/04/2024 6:09 AM PATIENT COORDINATOR 09/04/2024 6:13 AM PATIENT COORDINATOR Gurvinder Espinosadak DO CHEMISTRY Aidee l Result Performing Organization Address City/[facility]/ZIP Co de Phone Number [facility] [address] [place] [address] * (ABNORMAL) BLOOD GAS,VENOUS (09/04/2024 6:09 AM PATIENT COORDINATOR) PH, VENOUS 7.41 7.32 - 7.43 09/04/2024 6:18 AM [facility] PCO2, VENOUS 45 41 - 51 mmHg 09/04/2024 6:18 AM [facility] PO2, VENOUS 39 35 - 40 mmHg 09/04/2024 6:18 AM [facility] HCO3,VENOUS 29 22 - 29 mmol/L 09/04/2024 6:18 AM [facility] BASE EXCESS, VENOUS, POCT 3.2(H) -2.0 - 3.0 09/04/2024 6:18 AM [facility] O2 SATURATION, VENOUS 69(L) 70 - 75 % 09/04/2024 6:18 AM [facility] PATIENT TEMPERATURE 37.0 Degrees C 09/04/2024 6:18 AM [facility] Blood VENOUS BLOOD SPECIMEN / Unknown Butterfly / Unknown 09/04/2024 6:09 AM PATIENT COORDINATOR 09/04/2024 6:13 AM PATIENT COORDINATOR Gurvinder Alfaro DO CHEMISTRY Aidee l Result [facility] [address] [place] [id number] * CREATININE (09/04/2024 6:09 AM PATIENT COORDINATOR) Only the most recent of4 resultswithin the time period is included. Pathologist [facility] eGFR >90 >90 mL/min/1.7 3m2 09/04/2024 6:40 AM [facility] Comment:As of 2021, eG FR is calculated by the CKD-EPI creatinine equation without race adjustment. eGFR can be influenced by muscle mass, exercise, and diet. The reported eGFR is an estimation only and is only applicable if the renal function is stable. CREATININE 0.71 0.70 - 1.20 mg/dL 09/04/2024 6:40 AM [facility] Blood BLOOD SPECIMEN / Unknown Butterfly / Unknown 09/04/2024 6:09 AM PATIENT COORDINATOR 09/04/2024 6:13 AM PATIENT COORDINATOR Gurvinder Alfaro DO CHEMISTRY Aidee l Result Performing Organization Address City/[facility]/ZIP Co de Phone Number [facility] [address] [place] [address] * VITAMIN B12 (09/04/2024 6:09 AM PATIENT COORDINATOR) VITAMIN B12 389 232 - 1,245 pg/mL 09/04/2024 1:17 PM PATIENT COORDINATOR [facility] Blood BLOOD SPECIMEN / Unknown Butterfly / Unknown 09/04/2024 6:09 AM PATIENT COORDINATOR 09/04/2024 6:12 AM PATIENT COORDINATOR Narrative [facility] - 09/04/2024 1:17 PM PATIENT COORDINATOR Biotin supplements may cause clinically significant interference for this test assay. If interference is suspected, it is strongly recommended that biotin is discontinued for at least one week prior to retesting. [facility] Angel[facility] CHEMISTRY Aidee l Result Performing Organization Address [facility]/RUST Co de Phone Number [facility] [address] [place] [address], * AMMONIA (09/04/2024 6:09 AM PATIENT COORDINATOR) AMMONIA 21 11 - 51 umol/L 09/04/2024 6:39 AM PATIENT COORDINATOR [facility] Blood BLOOD SPECIMEN / Unknown Butterfly / Unknown 09/04/2024 6:09 AM PATIENT COORDINATOR 09/04/2024 6:12 AM PATIENT COORDINATOR Narrative [facility] - 09/04/2024 6:39 AM PATIENT COORDINATOR 1. Sulfasalazine and its metabolite Sulfapyridine at therapeutic concentrations may lead to falsely low results. 2. Temozolomide and its metabolite MTIC may lead to falsely elevated results, and its metabolite AIC may lead to falsely low results. [facility] Robin [email or web address] CHEMISTRY Aidee l Result Performing Organization Address City/[facility]/ZIP Co de Phone Number [facility] [address] [place] [address] * TSH (09/03/2024 11:48 AM PATIENT COORDINATOR) [facility] TSH 2.08 0.27 - 4.20 uIU/mL 09/03/2024 2:43 PM [facility] Blood BLOOD SPECIMEN / Unknown Venipuncture / Unknown 09/03/2024 11:48 AM PATIENT COORDINATOR 09/03/2024 11:[address] [facility] - 09/03/2024 2:43 PM PATIENT COORDINATOR In Adults, TSH values between 5.00 and 10.00 uIU/ml do not necessarily indicate the presence of Hypothyroidism. Correlation with clinical findings such as presence of goiter and/or Thyroperoxidase (TPO) Antibody may be helpful. For more information please refer to DOMINIQUE 2004; 291: 228-238. Gurvinder Alfaro DO CHEMISTRY Aidee l Result [facility] [address] [place] [address] * (ABNORMAL) DRUG SCREEN RAPID URINE INHOUSE (09/02/2024 10:25 PM PATIENT COORDINATOR) [facility] THC METABOLITES,SIMONE L Non-negative , consider further testing if indicated(A) Not Detected 09/02/2024 10:41 PM [facility] PCP,QUAL Not Detected Not Detected 09/02/2024 10:41 PM [facility] COCAINE,QUAL Not Detected Not Detected 09/02/2024 10:41 PM [facility] METHAMPHETAMINE , QUALITATIVE Not Detected Not Detected 09/02/2024 10:41 PM [facility] OPIATES,QUAL Not Detected Not Detected 09/02/2024 10:41 PM [facility] AMPHETAMINE, QUALITATIVE Not Detected Not Detected 09/02/2024 10:41 PM [facility] BENZODIAZEPINES ,QUAL Not Detected Not Detected 09/02/2024 10:41 PM [facility] TRICYCLICS,QUAL Non-negative , consider further testing if indicated(A) Not Detected 09/02/2024 10:41 PM [facility] METHADONE, QUALITATIVE Not Detected Not Detected 09/02/2024 10:41 PM [facility] BARBITURATES,QU AL Not Detected Not Detected 09/02/2024 10:41 PM [facility] OXYCODONE, QUALITATIVE Not Detected Not Detected 09/02/2024 10:41 PM [facility] BUPRENORPHINE, QUALITATIVE Not Detected Not Detected 09/02/2024 10:41 PM [facility] Urine URINE SPECIMEN / Unknown Non-Blood / Unknown 09/02/2024 10:25 PM PATIENT COORDINATOR 09/02/2024 10:[address] [facility] - 09/02/2024 10:41 PM PATIENT COORDINATOR Please Note: This is a screening test only, all results are unconfirmed and should be used for medical purposes only. Unconfirmed results must not be used for non-medical purposes (e.g., employment testing, legal testing). Suggest analyte specific confirmation for all non-negative results. Specimens will be held for 24 hours if additional testing is needed. The following threshold concentrations are used for this analysis: Drug Screening Threshold Buprenorphine 10 ng/mL PCP 25 ng/mL THC Metabolites 50 ng/mL *Opiates 100 ng/mL Oxycodone 100 ng/mL Cocaine 150 ng/mL Benzodiazepines 150 ng/mL Methadone 200 ng/mL Barbiturates 200 ng/mL Tricyclic Antidepressants 300 ng/mL Amphetamines 500 ng/mL Methamphetamines 500 ng/mL *Includes related compounds: Codeine 50 ng/mL Heroin 100 ng/mL Morphine 100 ng/mL Hydrocodone 400 ng/mL Hydromorphone 800 ng/mL Venlafaxine (Effexor) is a known cross reactant in the PCP assay. If clinically indicated, order PCP confirmation. Rosemarie CONN URINE Final Result [facility] [address] [place] [address] * CT HEAD BRAIN WO (09/02/2024 8:34 PM PATIENT COORDINATOR) Anatomical Region Laterality Modality HEAD, BRAIN Computed Tomogra phy 09/02/2024 8:45 PM PATIENT COORDINATOR Impressions 09/02/2024 8:45 PM PATIENT COORDINATOR Normal head CT. Please note that all CT scans at this facility use dose modulation, iterative reconstruction, and/or weight-based dosing when appropriate to reduce radiation dose to as low as reasonably achievable. Dictated by Bria Sandoval MD @ 09/02/2024 8:45:29 PM (Electronically Signed) Narrative 09/02/2024 8:45 PM PATIENT COORDINATOR For Patients: As a result of the Cures Act, medical imaging exams and procedure reports are released immediately into your electronic medical record. You may view this report before your referring provider. If you have questions, please contact your health care provider. INDICATION: Altered mental status of unknown cause. COMPARISON: None. TECHNIQUE: CT of the brain / head without intravenous contrast. Multiplanar axial, coronal, and sagittal reformats were reconstructed. FINDINGS: No intracranial hemorrhage. Normal appearance of the white matter. No acute or subacute cortically based infarct. No mass or mass effect. Normal ventricles. No skull fractures. No worrisome focal bone lesion. Procedure Note Bria Sandoval MD - 09/02/2024 For Patients: As a result of the Cures Act, medical imagingexams and procedure reports are released immediately into your electronicmedical record. You may view this report before your referring provider.If you have questions, please contact your health care provider. INDICATION: Altered mental status of unknown cause. COMPARISON: None. TECHNIQUE: CT of the brain / head without intravenous contrast. Multiplanar axial,coronal, and sagittal reformats were reconstructed. FINDINGS: No intracranial hemorrhage. Normal appearance of the white matter. No acute or subacute corticallybased infarct. No mass or mass effect. Normal ventricles. No skull fractures. No worrisome focal bone lesion. IMPRESSION: Normal head CT. Please note that all CT scans at this facility use dose modulation,iterative reconstruction, and/or weight-based dosing when appropriate toreduce radiation dose to as low as reasonably achievable. Dictated by Bria Sandoval MD @ 09/02/2024 8:45:29 PM (Electronically Signed) Rosemarie Cristobal CONN CT Final Result * XR SPINE 1 VIEW PORTABLE (09/02/2024 8:29 PM PATIENT COORDINATOR) Only the most recent of7 resultswithin the time period is included. Anatomical Region Laterality Modality Spine, CERVICAL SPINE, THORACIC SPINE, LUMBAR SP INE Digital Radiography 09/02/2024 8:37 PM PATIENT COORDINATOR Impressions 09/02/2024 8:37 PM PATIENT COORDINATOR 1. Nondiagnostic cervical spine radiographs. 2. Postoperative thoracolumbar spine without any acute findings or hardware complications seen. Dictated by Bria Sandoval MD @ 09/02/2024 8:37:18 PM (Electronically Signed) Narrative 09/02/2024 8:37 PM PATIENT COORDINATOR For Patients: As a result of the Cures Act, medical imaging exams and procedure reports are released immediately into your electronic medical record. You may view this report before your referring provider. If you have questions, please contact your health care provider. INDICATION: Trauma COMPARISON: Cervical spine radiographs 08/19/2024, chest radiograph 08/17/2024, procedural images [id number] TECHNIQUE: One view cross-table lateral cervical spine One view cross-table lateral thoracic spine One view cross-table lateral lumbar spine FINDINGS: The cervical spine radiograph is essentially nondiagnostic due to overlapping osseous structures. ACDF hardware noted. T4 through S1 posterior instrumented fusion with multilevel pedicle screws and paired vertical rods. Crossbar link at about T12. Interbody devices at T10-11, T11-12, L1-2, L2-3, L3-4, and L4-5. Multilevel lumbar laminectomy. Hardware appears to be intact without hardware failure or migration. No new or worsening thoracolumbar fracture. Procedure Note Bria Sandoval MD - 09/02/2024 For Patients: As a result of the Cures Act, medical imagingexams and procedure reports are released immediately into your electronicmedical record. You may view this report before your referring provider.If you have questions, please contact your health care provider. INDICATION: Trauma COMPARISON: Cervical spine radiographs 08/19/2024, chest radiograph 08/17/2024,procedural images [id number] TECHNIQUE: One view cross-table lateral cervical spine One view cross-table lateral thoracic spine One view cross-table lateral lumbar spine FINDINGS: The cervical spine radiograph is essentially nondiagnostic due tooverlapping osseous structures. ACDF hardware noted. T4 through S1 posterior instrumented fusion with multilevel pedicle screwsand paired vertical rods. Crossbar link at about T12. Interbody devices [id number], T11-12, L1-2, L2-3, L3-4, and L4-5. Multilevel lumbar laminectomy.Hardware appears to be intact without hardware failure or migration. Nonew or worsening thoracolumbar fracture. IMPRESSION: 1. Nondiagnostic cervical spine radiographs. 2. Postoperative thoracolumbar spine without any acute findings orhardware complications seen. Dictated by Bria Sandoval MD @ 09/02/2024 8:37:18 PM (Electronically Signed) Lisa Gross MD GENERAL IMAGING Final Result * EKG 12 LEAD (09/02/2024 7:14 PM PATIENT COORDINATOR) Pathologist [facility] Interpretation Sinus tachycardia with occasional Premature ventricular complexes Otherwise normal ECG No previous ECGs available BEYOND NOW Ventricular Rate 113 BPM BEYOND NOW Atrial Rate 113 BPM BEYOND NOW P-R Interval 198 ms BEYOND NOW QRS Duration 96 ms BEYOND NOW QT 336 ms BEYOND NOW QTc 460 ms BEYOND NOW P [place] 55 degrees BEYOND NOW R [place] 60 degrees BEYOND NOW T [place] 59 degrees BEYOND NOW 09/02/2024 7:14 PM PATIENT COORDINATOR 09/02/2024 7:18 PM PATIENT COORDINATOR us Rosemarie CONN EKG ORD Final Result BEYOND NOW [place], [place] * (ABNORMAL) CBC WITH AUTO DIFFERENTIAL (09/02/2024 7:07 PM PATIENT COORDINATOR) Pathologist [facility] WHITE BLOOD COUNT 10.3 4.5 - 11.0 thou/cu mm 09/02/2024 7:16 PM PATIENT COORDINATOR [facility] RED BLOOD COUNT 3.44(L) 4.30 - 5.90 mil/cu mm 09/02/2024 7:16 PM PATIENT COORDINATOR [facility] HEMOGLOBIN 10.9(L) 13.5 - 17.5 g/dL 09/02/2024 7:16 PM [facility] HEMATOCRIT 34.3(L) 37.0 - 53.0 % 09/02/2024 7:16 PM [facility] MCV 100 80 - 100 fL 09/02/2024 7:16 PM [facility] MCH 31.7 26.0 - 34.0 pg 09/02/2024 7:16 PM [facility] MCHC 31.8(L) 32.0 - 36.0 g/dL 09/02/2024 7:16 PM [facility] RDW 14.0 11.5 - 15.5 % 09/02/2024 7:16 PM [facility] PLATELET COUNT 443(H) 140 - 440 thou/cu mm 09/02/2024 7:16 PM [facility] MPV 9.0 6.5 - 11.0 fL 09/02/2024 7:16 PM [facility] % NEUT 69.1 % 09/02/2024 7:16 PM [facility] % LYMPH 22.8 % 09/02/2024 7:16 PM [facility] % MONO 7.9 % 09/02/2024 7:16 PM [facility] % EOS 0.0 % 09/02/2024 7:16 PM [facility] % BASO 0.2 % 09/02/2024 7:16 PM [facility] ABSOLUTE NEUTROPHILS 7.1(H) 1.7 - 7.0 thou/cu mm 09/02/2024 7:16 PM [facility] ABSOLUTE LYMPHOCYTES 2.3 0.9 - 2.9 thou/cu mm 09/02/2024 7:16 PM [facility] ABSOLUTE MONOCYTES 0.8 <0.9 thou/cu mm 09/02/2024 7:16 PM [facility] ABSOLUTE EOSINOPHILS 0.0 <0.5 thou/cu mm 09/02/2024 7:16 PM [facility] ABSOLUTE BASOPHILS 0.0 <0.3 thou/cu mm 09/02/2024 7:16 PM PATIENT COORDINATOR [facility] Blood BLOOD SPECIMEN / Unknown Venipuncture / Unknown 09/02/2024 7:07 PM PATIENT COORDINATOR 09/02/2024 7:10 PM PATIENT COORDINATOR Rosemarie CONN HEMATOLOGY Final Result Performing Organization Address [facility]/ZIP Co de Phone Number [facility] [address] [place] [address] * LACTATE VENOUS (09/02/2024 7:07 PM PATIENT COORDINATOR) LACTATE,VENOUS 1.0 0.5 - 2.0 mmol/L 09/02/2024 7:31 PM PATIENT COORDINATOR [facility] Blood BLOOD SPECIMEN / Unknown Venipuncture / Unknown 09/02/2024 7:07 PM PATIENT COORDINATOR 09/02/2024 7:10 PM PATIENT COORDINATOR Rosemarie CONN CHEMISTRY Final Result Performing Organization Address City/[facility]/ZIP Co de Phone Number [facility] [address] [place] [address] * (ABNORMAL) AMITRIPTYLINE (ELAVIL) (09/02/2024 7:07 PM PATIENT COORDINATOR) AMITRIPTYLINE 255 ng/mL 09/06/2024 10:09 AM PATIENT COORDINATOR [facility] NORTRIPTYLINE (AVENTYL) 53 50 - 150 ng/mL 09/06/2024 10:09 AM PATIENT COORDINATOR [facility] COMBINED TOTAL 308(H) 80 - 200 ng/mL 09/06/2024 10:09 AM PATIENT COORDINATOR [facility] Comment: This test was developed and its performance characteristics determined by [employer]. It has not been cleared or approved by the Food and Drug Administration. Blood BLOOD SPECIMEN / Unknown Venipuncture / Unknown 09/02/2024 7:07 PM PATIENT COORDINATOR 09/02/2024 7:10 PM PATIENT COORDINATOR Rosemarie CONN SEND OUTS Final Result [facility] [address] [place] [address], * ETHANOL SERUM OR PLASMA (09/02/2024 7:07 PM PATIENT COORDINATOR) ETHANOL <0.010 <0.010 g/dL 09/02/2024 7:29 PM PATIENT COORDINATOR [facility] Blood BLOOD SPECIMEN / Unknown Venipuncture / Unknown 09/02/2024 7:07 PM PATIENT COORDINATOR 09/02/2024 7:10 PM PATIENT COORDINATOR Rosemarie CONN CHEMISTRY Final Result [facility] [address] [place] [address] * (ABNORMAL) C-REACTIVE PROTEIN (09/02/2024 7:07 PM PATIENT COORDINATOR) Pathologist [facility] C-REACTIVE PROTEIN 7.6(H) <0.5 mg/dL 09/02/2024 7:31 PM PATIENT COORDINATOR [facility] Blood BLOOD SPECIMEN / Unknown Venipuncture / Unknown 09/02/2024 7:07 PM PATIENT COORDINATOR 09/02/2024 7:10 PM PATIENT COORDINATOR Rosemarie CONN CHEMISTRY Final Result Performing Organization Address City/[facility]/ZIP Co de Phone Number [facility] [address] [place] [address] * (ABNORMAL) BASIC METABOLIC PANEL (09/02/2024 7:07 PM PATIENT COORDINATOR) SODIUM 140 136 - 145 mmol/L 09/02/2024 7:31 PM [facility] POTASSIUM 3.8 3.5 - 5.1 mmol/L 09/02/2024 7:31 PM [facility] CHLORIDE 101 98 - 107 mmol/L 09/02/2024 7:31 PM [facility] CO2,TOTAL 28 22 - 29 mmol/L 09/02/2024 7:31 PM [facility] ANION GAP 11 5 - 18 09/02/2024 7:31 PM [facility] GLUCOSE 93 70 - 99 mg/dL 09/02/2024 7:31 PM [facility] CALCIUM 8.7(L) 8.8 - 10.4 mg/dL 09/02/2024 7:31 PM [facility] Comment: Reference ranges for this test were updated on 07/02/2024 to reflect our healthy population more accurately. Reference range changes are not retroactively applied to results, but previous results using the same methodology can be interpreted in the context of the new reference range. BUN 6 6 - 20 mg/dL 09/02/2024 7:31 PM [facility] CREATININE 0.80 0.70 - 1.20 mg/dL 09/02/2024 7:31 PM [facility] BUN/CREAT RATIO 8(L) 10 - 20 7:31 PM [facility] eGFR >90 >90 mL/min/1. 73m2 09/02/2024 7:31 PM [facility] Comment:As of 2021, eG FR is calculated by the CKD-EPI creatinine equation without race adjustment. eGFR can be influenced by muscle mass, exercise, and diet. The reported eGFR is an estimation only and is only applicable if the renal function is stable. Blood BLOOD SPECIMEN / Unknown Venipuncture / Unknown 09/02/2024 7:07 PM PATIENT COORDINATOR 09/02/2024 7:10 PM PATIENT COORDINATOR Rosemarie CONN CHEMISTRY Final Result [facility] [address] [place] [address] * XR SPINE CERVICAL 2 VIEWS (08/19/2024 5:35 PM PATIENT COORDINATOR) Anatomical Region Laterality Modality CERVICAL SPINE Digital Radiogra phy 08/20/2024 6:58 AM PATIENT COORDINATOR Impressions 08/20/2024 6:58 AM PATIENT COORDINATOR C3 through C6 ACDF. Mild precervical soft tissue swelling. Dictated by Bria Sandoval MD @ Aug 20 2024 6:58AM (Electronically Signed) [email or web address] Narrative 08/20/2024 6:58 AM PATIENT COORDINATOR For Patients: As a result of the Cures Act, medical imaging exams and procedure reports are released immediately into your electronic medical record. You may view this report before your referring provider. If you have questions, please contact your health care provider. INDICATION: Postop evaluation COMPARISON: Chest radiograph 08/17/2024, no prior cervical spine imaging TECHNIQUE: Two view cervical spine. FINDINGS: C3 through C6 ACDF. Hardware appears to be intact and well-positioned. There is some cervical prevertebral soft tissue swelling. Thoracic hardware partially included in the field of view. Procedure Note Bria Sandoval MD - 08/20/2024 For Patients: As a result of the Cures Act, medical imagingexams and procedure reports are released immediately into your electronicmedical record. You may view this report before your referring provider.If you have questions, please contact your health care provider. INDICATION: Postop evaluation COMPARISON: Chest radiograph 08/17/2024, no prior cervical spine imaging TECHNIQUE: Two view cervical spine. FINDINGS: C3 through C6 ACDF. Hardware appears to be intact and well-positioned.There is some cervical prevertebral soft tissue swelling. Thoracichardware partially included in the field of view. IMPRESSION: C3 through C6 ACDF. Mild precervical soft tissue swelling. Dictated by Bria Sandoval MD @ Aug 20 2024 6:58AM (Electronically Signed) [email or web address] [email or web address] [email or web address] Final Resu lt * XR CHEST 1 VIEW PORTABLE (08/17/2024 9:16 AM PATIENT COORDINATOR) Only the most recent of2 resultswithin the time period is included. Anatomical Region Laterality Modality HEART, THORAX, CHEST Digital Rad iography Narrative 08/17/2024 11:12 AM PATIENT COORDINATOR Indication: Chest tube. Comparison: Chest x-ray dated 16 August 2024. Findings: A single portable chest x-ray shows a normal cardiac silhouette. The lungs show minimal left basilar atelectasis. No pneumothorax. Right-sided chest tube. Small amount of air over the right chest wall. Extensive stabilization hardware in the lower cervical spine and throughout the thoracic spine. Impression: Minimal left basilar atelectasis. No pneumothorax. Alessandro [facility] GENERAL IMAGING Final Re sult * XR C-ARM GREATER 1 HR (08/16/2024 2:50 PM PATIENT COORDINATOR) Anatomical Region Laterality Modality Other Narrative 08/16/2024 2:16 PM PATIENT COORDINATOR 21 seconds fluoroscopy time was provided. See operative/procedure report for further information. Result Yazmin Crespo MD FLUOROSCOPY Final Res ult * XR SPINE THORACIC 2 VIEWS PORTABLE (08/16/2024 1:56 PM PATIENT COORDINATOR) Only the most recent of2 resultswithin the time period is included. Anatomical Region Laterality Modality Spine, THORACIC SPINE Digital Ra diography Narrative 08/19/2024 8:04 AM PATIENT COORDINATOR Indication: Intraoperative assessment/spinal localization. Technique: Radiographs of the thoracic and lumbar spine.. Comparison: Thoracic spine radiographs from 04/18/2018. Findings/impression: On initial radiographs, and interbody spacer and partially imaged dorsolateral fusion hardware are noted. On second set of radiographs, lower thoracic interbody spacers and partially imaged dorsolateral fusion hardware are again noted. Spinal localization device projects over the lower thoracic spacer device. On third set of radiographs, long segment thoracolumbar dorsolateral fusion is noted without complication. On final set of radiographs, spinal localization devices project over the upper sacral region. Result Yazmin Crespo MD GENERAL IMAGING Final Res ult * XR C-ARM EQUAL OR GREATER 4 HR (08/16/2024 1:12 PM PATIENT COORDINATOR) Anatomical Region Laterality Modality Other Narrative 08/16/2024 8:24 AM PATIENT COORDINATOR 3 minutes 40 seconds fluoroscopy time was provided. See operative/procedure report for further information. Result Yazmin Crespo MD FLUOROSCOPY Final Res ult * HCHG TUBE PR1, HCHG INSTRUMENT DISP PR10, HCHG STYLET PR1 (08/16/2024 9:00 AM PATIENT COORDINATOR) Janusz Miranda CRNA - 08/16/2024 9:00 AM PATIENT COORDINATOR Janusz Brown CRNA 08/16/2024 9:01 AM Procedure: ETT Patient location during procedure: OR ETT Properties Mask Ventilation: oral airway and difficult Final Technique: video laryngoscopy Type: straight Location: oral Cuffed: yes Tube Size: 8.0 mm Stylet: yes Laryngoscope Blade: Glidescope Blade Size: 4 Cormack-Lehane Grade View: 1 Insertion Attempts: 1 Placement Verification: end tidal CO2 and symmetrical chest wall movement Assessment: pharynx clear, atraumatic and dentition unchanged Secured at: 24 Measured From: teeth Bite Block: soft Difficulty: 1 (somewhat) us Mony Malave MD ANESTHESIA PX NOTE ORD ERABLES Final Result * HCHG CATH PR5, HCHG TUBING PR1, HCHG TUBING PR20, HCHG DRSG PR1, HCHG DRSG PR5, HCHG KIT PR5 (08/16/2024 8:40 AM PATIENT COORDINATOR) Mony Gonsalez MD - 08/16/2024 8:40 AM PATIENT COORDINATOR Mony Malave MD 08/16/2024 8:40 AM Arterial Line Patient location during procedure: OR Indications: lab sampling and monitoring Staffing Preanesthetic Checklist Completed: patient identified, risks and benefits discussed, consent obtained and timeout performed Arterial Line Patient position: supine. Comment:. Laterality: left Site: radial Ultrasound guidance: live ultrasound and sterile gel and probe cover used in ultrasound-guided central venous catheter insertion. Ultrasound Indication: arteriosclerosis Needle localization (ultrasound): no pathologic findings. Securement/dressing: Biopatch applied, dressing applied. 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 Comment:. Catheter length: 4.5 cm. Comment: Events: no complications. Additional Notes No perm image saved for chart us Mony Malave MD ANESTHESIA PX NOTE ORD ERABLES Final Result * EXTRA TUBE LAVENDER (08/16/2024 7:48 AM PATIENT COORDINATOR) Blood BLOOD SPECIMEN / Unknown Non-Lab Venipuncture / Unknown 08/16/2024 7:48 AM PATIENT COORDINATOR 08/16/2024 8:06 AM PATIENT COORDINATOR Milton Helm MD LABORATORY Final Result [facility] [address] [place] [address], [place] * (ABNORMAL) CBC W PLT NO DIFF (08/16/2024 7:48 AM PATIENT COORDINATOR) WHITE BLOOD COUNT 16.5(H) 4.5 - 11.0 thou/cu mm 08/16/2024 8:07 AM [facility] RED BLOOD COUNT 4.02(L) 4.30 - 5.90 mil/cu mm 08/16/2024 8:07 AM [facility] HEMOGLOBIN 13.1(L) 13.5 - 17.5 g/dL 08/16/2024 8:07 AM [facility] HEMATOCRIT 38.0 37.0 - 53.0 % 08/16/2024 8:07 AM [facility] MCV 95 80 - 100 fL 08/16/2024 8:07 AM [facility] MCH 32.6 26.0 - 34.0 pg 08/16/2024 8:07 AM [facility] MCHC 34.5 32.0 - 36.0 g/dL 08/16/2024 8:07 AM [facility] RDW 13.8 11.5 - 15.5 % 08/16/2024 8:07 AM [facility] PLATELET COUNT 259 140 - 440 thou/cu mm 08/16/2024 8:07 AM [facility] MPV 9.6 6.5 - 11.0 fL 08/16/2024 8:07 AM [facility] NRBC 0.0 % 08/16/2024 8:07 AM [facility] ABS NRBC 0.0 thou /cu mm 08/16/2024 8:07 AM PATIENT COORDINATOR [facility] Blood BLOOD SPECIMEN / Unknown Venipuncture / Unknown 08/16/2024 7:48 AM PATIENT COORDINATOR 08/16/2024 7:59 AM PATIENT COORDINATOR us Mony Malave MD HEMATOLOGY Final Result Performing Organization Address City/[facility]/ZIP Co de Phone Number [facility] [address] [place] [address], [place] * (ABNORMAL) GLUCOSE METER (08/16/2024 7:46 AM PATIENT COORDINATOR) Only the most recent of2 resultswithin the time period is included. GLUCOSE METER 116(H) 65 - 100 mg/dL 08/16/2024 7:52 AM PATIENT COORDINATOR [facility] Blood BLOOD SPECIMEN / Unknown 08/16/2024 7:46 AM PATIENT COORDINATOR 08/16/2024 7:52 AM PATIENT COORDINATOR Milton Helm MD CHEMISTRY Final Result Performing Organization Address [facility]/[employer] Co de Phone Number [facility] [address] [place] [address], * TYPE & SCREEN (08/16/2024 6:50 AM PATIENT COORDINATOR) ABORH O Rh Positive 08/16/2024 8:01 AM PATIENT COORDINATOR [facility] [employer] [facility] ANTIBODY SCREEN Negative Negative 08/16/2024 8:01 AM PATIENT COORDINATOR [facility] [employer] SPECIMEN EXPIRATION DATE/TIME 08/19/24 23:59 08/16/2024 8:01 AM PATIENT COORDINATOR [facility] Blood BLOOD SPECIMEN / Unknown Venipuncture / Unknown 08/16/2024 6:50 AM PATIENT COORDINATOR 08/16/2024 7:01 AM PATIENT COORDINATOR Mony Malave MD BLOOD BANK Final Result Performing Organization Address City/[facility]/ZIP Co de Phone Number [facility] [address] [place] [address], [place] [phone] * SCAN-OPERATIVE/PROCEDURE REPORT (08/16/2024 12:00 AM PATIENT COORDINATOR) Narrative 08/16/2024 12:00 AM PATIENT COORDINATOR Ordered by an unspecified provider. us Other Clinical Staff OTHER Final Resul t * XR C-ARM EQUAL OR GREATER 3 HR (08/15/2024 12:25 PM PATIENT COORDINATOR) Anatomical Region Laterality Modality Other Narrative 08/15/2024 8:28 AM PATIENT COORDINATOR 26 seconds fluoroscopy time was provided. See operative/procedure report for further information. us Milton Helm MD FLUOROSCOPY Final Result * HCHG CATH PR5, HCHG ANES US GUIDE FOR VASC ACCESS, HCHG ANES ARTERIAL CATH FOR SAMPLE MONITOR TRANS, HCHG TUBING PR1, HCHG TUBING PR20, HCHG DRSG PR1, HCHG DRSG PR5, HCHG STATLOCK PR1, HCHG KIT PR5 (08/15/2024 8:29 AM PATIENT COORDINATOR) Narrative Oziel Morales MD - 08/15/2024 8:29 AM PATIENT COORDINATOR Oziel Morales MD 08/15/2024 8:30 AM Arterial Line Patient location during procedure: pre-op Start time: 08/15/2024 7:00 AM End time: 08/15/2024 7:05 AM Indications: lab sampling and monitoring Requesting provider: Milton Helm MD Staffing Preanesthetic Checklist Completed: patient identified, risks and benefits discussed, consent obtained and timeout performed Arterial Line Patient position: supine. Comment:. Laterality: left Site: radial Local Anesthetic: lidocaine 1%. Ultrasound guidance: live ultrasound and ultrasound permanent image saved. Ultrasound Indication: arteriosclerosis Needle localization (ultrasound): no pathologic findings, anatomically normal, selected vessel patent, potential access sites evaluated and needle visualized entering selected vessel. Securement/dressing: Biopatch applied, dressing applied, STATLOCK stabilization placed. 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 Comment:. Catheter length: 4.5 cm. Comment: Events: no complications. Additional Notes Procedure performed with maximal sterile precautions including chloraprep preparation, drape, gloves, and ultrasound probe cover/gel. Oziel Morales MD ANESTHESIA PX NOTE OR DERABLES Final Result * HCHG TUBE PR1, HCHG INSTRUMENT DISP PR10, HCHG STYLET PR1 (08/15/2024 8:28 AM PATIENT COORDINATOR) Narrative Elizabeth Peraza CRNA - 08/15/2024 8:28 AM PATIENT COORDINATOR Elizabeth Peraza CRNA 08/15/2024 8:29 AM Procedure: ETT Patient location during procedure: OR ETT Properties Mask Ventilation: easy and oral airway Final Technique: video laryngoscopy Type: straight Location: oral Tube Size: 7.5 mm Stylet: yes Laryngoscope Blade: Glidescope Blade Size: 3 Cormack-Lehane Grade View: 1 Insertion Attempts: 1 Placement Verification: auscultation, end tidal CO2 and symmetrical chest wall movement Assessment: pharynx clear, atraumatic and dentition unchanged Secured at: 20 Measured From: teeth Difficulty: 0 (not difficult) Oziel Morales MD ANESTHESIA PX NOTE OR DERABLES Final Result * SCAN-CARDIAC STRIP (08/15/2024 12:00 AM PATIENT COORDINATOR) Narrative 08/15/2024 12:00 AM PATIENT COORDINATOR Ordered by an unspecified provider. us Other Clinical Staff OTHER Final Resul t * SCAN CORRESP-LABORATORY RESULTS (08/13/2024 9:05 AM PATIENT COORDINATOR) Only the most recent of2 resultswithin the time period is included. Narrative 08/13/2024 9:05 AM PATIENT COORDINATOR Ordered by an unspecified provider. us Other Clinical Staff OTHER Final Resul t * SCAN CORRESP-EKG RESULTS (08/13/2024 8:45 AM PATIENT COORDINATOR) Narrative 08/13/2024 8:45 AM PATIENT COORDINATOR Ordered by an unspecified provider. 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 COMP [email or web address] [place] [address] Advance Directives * Full Code (Latest Code Status on File) Date Activated Date Inactivated Comments 09/02/2024 11:26 PM 09/04/2024 3:20 PM Question Answer Comments Code Status Discussion: Reviewed Preferences * Full Code Date Activated Date Inactivated Comments 08/15/2024 3:19 PM 08/21/2024 1:10 PM Question Answer Comments Code Status Discussion: Reviewed Preferences * Full Code Date Activated Date Inactivated Comments 09/12/2018 8:43 PM 09/15/2018 1:03 PM * Full Code Date Activated Date Inactivated Comments 01/31/2018 8:56 PM 02/03/2018 3:18 PM * Full Code Date Activated Date Inactivated Comments 02/21/2017 11:29 AM 02/22/2017 3:47 PM Care Teams Credit Control Manager Relationship Specialty Start Date End Date Clinic, No Pcp Or . PCP - General 01/12/21
[2024-10-09] MEDS: HYDROmorphone 2 MG TABLET 4 MG PO (08:58)
[2024-10-09 09:37] VITALS: BP 115/77; PULSE 95; O2SAT 99
[2024-10-09 09:38] VITALS: PULSE 86; O2SAT 97
[2024-10-09] MEDS: LORazepam 1 MG TABLET PO (09:49)
[2024-10-09] MEDS: HYDROmorphone 2 MG TABLET PO (10:19)
[2024-10-09 10:21] VITALS: PULSE 81; O2SAT 96
[2024-10-09 11:26] VITALS: BP 103/74
== END 2024-10-09 13:56 | disposition home or self-care (01) ==
PROVIDERS: Emergency Provider Emergency Medicine; PCP Nurse Practitioner Family
DX: M54.50 Low back pain, unspecified (principal); G89.29 Other chronic pain
CPT/HCPCS: 72158; 99283; 99284; A9270; A9575

== ENCOUNTER 2025-01-07 10:17 | Outpatient (CLI) | payer MEDICARE, SELFPAY | END 2025-01-07 10:18 | disposition home or self-care (01) | PROVIDERS: PCP Nurse Practitioner Family; Visit Provider Nurse Practitioner Family | DX: D64.9 Anemia, unspecified (principal); Z01.818 Encounter for other preprocedural examination | CPT/HCPCS: 80053; 85025 ==

== ENCOUNTER 2025-01-09 13:31 | Outpatient (CLI) | payer MEDICARE, SELFPAY | END 2025-01-09 13:32 | disposition home or self-care (01) | PROVIDERS: PCP Nurse Practitioner Family; Visit Provider Nurse Practitioner Family | DX: R63.4 Abnormal weight loss (principal); D64.9 Anemia, unspecified; R00.0 Tachycardia, unspecified; R20.2 Paresthesia of skin; Z11.4 Encounter for screening for human immunodeficiency virus [HIV]; Z11.59 Encounter for screening for other viral diseases | CPT/HCPCS: 82607; 82728; 82746; 82784; 83540; 83550; 84443; 85018; 85045; 86231; 86258; 86364; 86703; 86803 ==

== ENCOUNTER 2025-01-10 10:15 | Outpatient (CLI) | payer MEDICARE, SELFPAY | END 2025-01-10 10:16 | disposition home or self-care (01) | LOC: NFLDREF 01-17 00:31 | PROVIDERS: PCP Nurse Practitioner Family; Referring Provider Nurse Practitioner Family; Visit Provider Nurse Practitioner Family | DX: R82.90 Unspecified abnormal findings in urine (principal) | CPT/HCPCS: 81001; 87086 ==

== ENCOUNTER 2025-03-21 08:08 | Outpatient (CLI) | payer MEDICARE, SELFPAY | END 2025-03-21 08:09 | disposition home or self-care (01) | PROVIDERS: PCP Nurse Practitioner Family; Visit Provider Nurse Practitioner Family | DX: R55 Syncope and collapse (principal); R42 Dizziness and giddiness; R11.2 Nausea with vomiting, unspecified; R63.4 Abnormal weight loss; Z13.6 Encounter for screening for cardiovascular disorders | CPT/HCPCS: 80053; 82150; 83690; 84443; 85025 ==